=== PATIENT | male | born 1975 | race Caucasian/White ===

== ENCOUNTER 2022-06-22 05:45 | Emergency (ER) | payer OTHER, SELFPAY ==
--- NOTE | 2022-06-22 | ECG_ITS ---
Test Reason : CHEST PAIN Blood Pressure : / mmHG Vent. Rate : 078 BPM Atrial Rate : 078 BPM P-R Int : 140 ms QRS Dur : 098 ms QT Int : 392 ms P-R-T Axes : 049 009 100 degrees QTc Int : 446 ms Normal sinus rhythm Nonspecific T wave abnormality Abnormal ECG When compared with ECG of 16-JUL-2006 22:02, Nonspecific ST and T wave abnormality now present Referred By: Generic ED Physician Electronically Signed By:JHOANA WALLACE
--- NOTE | ~2022-06-22 | XR_ITS ---
EXAMINATION: XR SHOULDER, LEFT CLINICAL INFORMATION: Trauma. Left shoulder pain. COMPARISON: None available. TECHNIQUE: 3 views of the left shoulder. As per technologist notes best possible images obtained at this time given the patient's ability to cooperate for proper positioning.. Evaluation on transscapular Y-view is significantly limited. FINDINGS: Acromioclavicular and glenohumeral joint alignments are maintained. Normal osseous mineralization. No evidence of fracture on the submitted images. No dystrophic soft tissue calcifications are noted. Visualized thorax is unremarkable. XR/XR shoulder LT min 2V IMPRESSION: Limited evaluation. On the submitted images no definite evidence of acute fracture or dislocation in the left shoulder.
[2022-06-22 05:58] VITALS: BP 154/117; PULSE 77; RESP 15; TEMP 36.5; O2SAT 98; BMI 44.3
[2022-06-22 06:12] VITALS: BP 147/81; PULSE 68
[2022-06-22 06:25] VITALS: BP 147/81
[2022-06-22 06:29] LABS: MANUAL DIFF FLAG NO
--- NOTE | 2022-06-22 06:30 | ED_ITS ---
HPI - General Adult General Chief complaint: ETOH/Substance Use Stated complaint: cp Time Seen by Provider: 06/22/22 06:28 Source: patient and EMS Mode of arrival: EMS Limitations: no limitations History of Present Illness HPI narrative: Patient is a 46 year old assigned male at with a history of chronic left s houlder pain presenting to the emergency department today with alcohol intoxication and persistent left shoulder pain. Patient states that he has been binge drinking since his mother day on 06/20/2022. Patient states that he got very drunk, began having left sided chest pain, and came into the hospital. Patient states that he has had multiple issues with the left shoulder including a previous surgery. Patient denies any dizziness, lightheadedness, abdominal pain, nausea, vomiting, fever, chills, blurry vision, double vision, loss of vision, chest pain, difficulty breathing, shortness of breath, back pain, night sweats, pain with urination, increased urinary frequency, increased urinary urgency, blood in his urine or stool, syncope or a near syncopal episode, bowel incontinence, bladder incontinence, bowel retention, bladder retention, or any other complaints at this time. Onset (ago): hour(s) Severity: mild Relieving factors: none Exacerbating factors: none Associated symptoms: denies other symptoms Treatments prior to arrival: none Related Data Allergies Allergy/AdvReac Type Severity Reaction Status Date / Time Penicillins [PENICILLINS] Allergy Unknown patient Verified 06/22/22 06:05 was young when having reaction, does not know reacti Review of Systems Constitutional: Constitutional: Reports no additional constitutional complaints, Denies chills, Denies fever(s) and Denies night sweats Eyes: Eyes: Reports no additional eye complaints, Denies blurry vision, Denies change in vision, Denies diplopia, Denies eye discharge, Denies loss of vision and Denies eye pain ENT: Denies dizziness Cardiovascular: Cardiovascular: Reports no additional cardiovascular complaints, Reports chest pain (resolved), Denies lightheadedness, Denies Loss of Consciousness and Denies dyspnea Respiratory: Respiratory: Reports no additional respiratory complaints and Denies dyspnea Gastrointestinal: Gastrointestinal: Reports no additional gastrointestinal complaints, Denies abdominal pain, Denies melena, Denies hematochezia, Denies change in bowel habits and Denies change in stool character Genitourinary: Genitourinary: Reports no additional male genitourinary complaints, Denies hematuria, Denies oliguria, Denies difficulty urinating, Denies dysuria, Denies urinary frequency, Denies urinary hesitancy, Denies urinary incontinence and Denies urinary urgency Musculoskeletal: Musculoskeletal: Reports no additional musculoskeletal complaints, Denies numbness and Denies tingling Comments: left shoulder pain - chronic Neurologic: Denies dizziness, Denies loss of vision, Denies numbness and Denies tingling Psychiatric: Psychiatric: Reports no additional psychiatric complaints Endocrine: Endocrine: Reports no additional endocrine complaints Hematologic/Lymphatic: Hematologic/Lymphatic: Reports no additional hematologic/lymphatic complaints Allergic/Immunologic: Allergic/Immunologic: Reports no additional allergic/immunologic complaints [facility] Past Medical History Attestation statement: The following information was validated with the patient. Source: old records reviewed and nursing notes reviewed Social History Social History Alcohol intake: current Smoked in Last 30 Days: No Use of substances other than those prescribed or required for medical reasons: No Advance Directives: No Advance Directives Information Provided: Yes Physical Exam ED Vital Signs: Vital Signs - 24 hr 06/22/22 05:58 06/22/22 06:25 06/22/22 06:12 Temperature 97.7 F Pulse Rate 77 68 Respiratory Rate 15 Blood Pressure 154/117 H 147/81 H 147/81 H Pulse Oximetry 98 Oxygen Delivery Method Room Air 06/22/22 08:18 06/22/22 10:06 Temperature Pulse Rate 75 81 Respiratory Rate 12 18 Blood Pressure 111/67 132/63 Pulse Oximetry 97 95 Oxygen Delivery Method Room Air Room Air BMI result Body Mass Index 44.3 Const General: cooperative, no acute distress, alert and awake Nutritional Appearance: well nourished Orientation/consciousness: patient oriented x3 Limitations: no limitations HENMT Head: Yes normal to inspection and Yes atraumatic Ears: hearing grossly normal bilaterally and external ears normal General nose exam: Normal external nose present, no nasal discharge noted and no epistaxis Face and sinus: Yes normal facial exam, No abrasion and No laceration Mouth: Normal oral and palatal mucosa present, no drooling and no muffled voice Eyes General: appearance normal, both eyes and all related structures Periorbital: periorbital findings normal Eyelids: Yes eyelids normal Conjunctivae: conjunctivae normal Pupils: Equal, round and reactive pupils present EOM: EOMs intact bilaterally Neck Neck: Yes normal visual inspection, Yes full ROM and Yes no lymphadenopathy Chest Chest palpation & inspection: normal inspection of the chest Resp Effort & Inspection: normal respiratory effort and able to speak in complete sentences Auscultation: clear to auscultation bilaterally Cardio Rate: regular rate Rhythm: regular rhythm GI Inspection: Yes normal to inspection Neuro General: patient oriented x3 and moves all extremities Cranial nerves: Yes Equal, round and reactive pupils present Cognition (Neuro): normal cognition Motor exam (neuro): 5/5 motor strength present throughout Sensory Exam: Normal double simultaneous stimulation for sensation Coordination: [id number] test normal Extrem General: Yes normal to inspection, Yes full ROM and Yes capillary refill normal Psych Appearance: grossly normal Mental Status: mental status grossly normal Affect: normal affect Attitude: cooperative Thought process: Normal thought process present Thought content: Normal thought content present Insight: Good insight present (Psych) Medications Administered Discontinued Medications Generic Name Dose Route Start Last Admin Trade Name Freq PRN Reason Stop Dose Admin Cyclobenzaprine HCl 5 mg 06/22/22 10:11 06/22/22 10:25 Cyclobenzaprine Hcl 5 Mg Tablet PO 06/22/22 10:12 5 mg ONCE ONE Administration Ketorolac Tromethamine 15 mg 06/22/22 10:11 06/22/22 10:25 Ketorolac Tromethamine 15 Mg/Ml Vial IM 06/22/22 10:12 15 mg ONCE ONE Administration Medical Decision Making Medical Decision Making [facility] Narrative: Patient is a 46 year old assigned male at with a history of chronic left shoulder pain presenting to the emergency department today with left shoulder pain and alcohol intoxication. Patient's physical exam was unremarkable. Patient's blood work was unremarkable. Patient's EKG was unremarkable. Patient's left shoulder x-ray showed no acute process. I explained my physical exam findings as well as all test results to the patient. I answered all questions asked by the patient. I requested that the recovery team meet with the patient however, the patient adamantly refused to speak to anyone from that team and was adamant that he did not want or need any help. I stressed the importance of the patient taking his medication as prescribed. I stressed the importance of the patient following up with his primary care and an orthopedic provider. I stressed the importance of the patient returning to the emergency department immediately if his symptoms were to worsen or if he were to develop any dizziness, shortness of breath, difficulty breathing, chest pain, blurry vision, loss of vision, nausea, vomiting, abdominal pain, fever, chills, back pain, or any other complaints. Patient verbalized agreement and understanding with this treatment plan and discharge. Differential Diagnosis Differential Diagnoses: The differential diagnosis associated with the presentation includes alcohol intoxication, left shoulder pain Lab Data MDM Lab Attestation statement: I reviewed the patient's lab results. 06/22/22 06:24 06/22/22 06:24 Labs: Lab Results 06/22/22 06/22/22 06/22/22 Range/Units 06:24 06:24 06:24 WBC 8.3 (4.8-10.8) X10*3/uL RBC 3.81 L (4.60-5.80) X10*6/uL Hgb 12.2 L (14.0-18.0) g/dl Hct 35.2 L (42.0-52.0) % MCV 92.4 (80.0-98.0) fL MCH 32.0 (27.0-33.0) pg MCHC 34.7 (31.0-36.0) g/dl RDW 11.8 (11.0-16.0) % Plt Count 256 (160-400) X10*3/uL MPV 10.4 (9.4-12.4) fL Immature Gran % (Auto) 0.5 H (0.0-0.4) % Neut % (Auto) 41.0 L (45-73) % Lymph % (Auto) 45.8 H (20-40) % [place] % (Auto) 8.6 (2-11) % Eos % (Auto) 3.7 (0-4) % Baso % (Auto) 0.4 (0-2) % Lymph # (Auto) 3.8 (1.2-4.9) X10*3/uL [place] # (Auto) 0.7 (0.1-1.2) X10*3/uL Eos # (Auto) 0.3 (0.0-0.4) X10*3/uL Baso # (Auto) 0.0 (0.0-0.2) X10*3/uL Abs Immat Gran (auto) 0.04 H (0.00-0.03) X10*3/uL Absolute Neuts (auto) 3.4 (2.0-8.3) x10*3/uL Absolute Nucleated RBC 0.000 (0.0-0.012) X10*3/uL Nucleated RBC % (auto) 0.0 (0.0-0.2) /100WBC Sodium 134 L (135-145) mmol/L Potassium 3.5 (3.3-5.1) mmol/L Chloride 100 (96-108) mmol/L Carbon Dioxide 24 (22-29) mmol/L Anion Gap 14 (12-20) BUN 6 L (9-16) mg/dL Creatinine 0.79 (0.5-1.4) mg/dL Estim Creat Clear Calc 158.3 Estimated GFR > 60 Random Glucose 126 H (60-115) mg/dL Calcium 8.6 (8.4-10.2) mg/dL Total Bilirubin 0.4 (0.0-1.0) mg/dL AST 27 (5-37) U/L ALT 32 (0-40) U/L Alkaline Phosphatase 84 (39-117) U/L Troponin I High Sens (<3.5-35.0) ng/L Total Protein 7.2 (6.5-8.0) g/dL Albumin 4.2 (3.5-5.0) g/dL Ethyl Alcohol 292 mg/dL 06/22/22 06/22/22 Range/Units 06:24 08:24 WBC (4.8-10.8) X10*3/uL RBC (4.60-5.80) X10*6/uL Hgb (14.0-18.0) g/dl Hct (42.0-52.0) % MCV (80.0-98.0) fL MCH (27.0-33.0) pg MCHC (31.0-36.0) g/dl RDW (11.0-16.0) % Plt Count (160-400) X10*3/uL MPV (9.4-12.4) fL Immature Gran % (Auto) (0.0-0.4) % Neut % (Auto) (45-73) % Lymph % (Auto) (20-40) % [place] % (Auto) (2-11) % Eos % (Auto) (0-4) % Baso % (Auto) (0-2) % Lymph # (Auto) (1.2-4.9) X10*3/uL [place] # (Auto) (0.1-1.2) X10*3/uL Eos # (Auto) (0.0-0.4) X10*3/uL Baso # (Auto) (0.0-0.2) X10*3/uL Abs Immat Gran (auto) (0.00-0.03) X10*3/uL Absolute Neuts (auto) (2.0-8.3) x10*3/uL Absolute Nucleated RBC (0.0-0.012) X10*3/uL Nucleated RBC % (auto) (0.0-0.2) /100WBC Sodium (135-145) mmol/L Potassium (3.3-5.1) mmol/L Chloride (96-108) mmol/L Carbon Dioxide (22-29) mmol/L Anion Gap (12-20) BUN (9-16) mg/dL Creatinine (0.5-1.4) mg/dL Estim Creat Clear Calc Estimated GFR Random Glucose (60-115) mg/dL Calcium (8.4-10.2) mg/dL Total Bilirubin (0.0-1.0) mg/dL AST (5-37) U/L ALT (0-40) U/L Alkaline Phosphatase (39-117) U/L Troponin I High Sens 7.8 7.9 (<3.5-35.0) ng/L Total Protein (6.5-8.0) g/dL Albumin (3.5-5.0) g/dL Ethyl Alcohol mg/dL Independent Interpretation I performed an independent interpretation of an: EKG and Plain X-Ray Interpretation: Vent. Rate: 078 BPM ? ? Atrial Rate: 078 BPM P-R Int: 140 ms? QRS Dur: 098 ms QT Int: 392 ms ? ? ? P-R-T Axes: 049 009 100 degrees QTc Int: 446 ms ? Normal sinus rhythm Nonspecific T wave abnormality Abnormal ECG When compared with ECG of 16-JUL-2006 22:02, No significant change was found DD/ [id number] My interpretation is in agreement with the radiologist's impression of this imaging study. EXAMINATION: XR SHOULDER, LEFT CLINICAL INFORMATION: Trauma. Left shoulder pain.? COMPARISON: None available.? TECHNIQUE: 3 views of the left shoulder. As per technologist notes best possible images obtained at this time given the patient's ability to cooperate for proper positioning.. Evaluation on transscapular Y-view is significantly limited. FINDINGS: Acromioclavicular and glenohumeral joint alignments are maintained. Normal osseous mineralization. No evidence of fracture on the submitted images. No dystrophic soft tissue calcifications are noted. Visualized thorax is unremarkable. XR/XR shoulder LT min 2V IMPRESSION: Limited evaluation. On the submitted images no definite evidence of acute fracture or dislocation in the left shoulder. Dictated By: Arianna Lee MD Signed By: Electronically signed by Arianna Lee MD 06/22/22 0726 Independent Historian Clinical information obtained from an independent historian. History obtained from or confirmed by: EMS Discharge Plan Discharge Clinical Impression: Alcoholic intoxication, Acute shoulder pain Patient Disposition: Home, Self-Care Instructions: Shoulder Pain (ED) Additional Instructions: Follow up with your primary care provider and an orthopedic provider. Return to the emergency department immediately if your symptoms worsen or if you develop any dizziness, shortness of breath, difficulty breathing, chest pain, blurry vision, loss of vision, nausea, vomiting, abdominal pain, fever, chills, back pain, or any other complaints. Referrals: [facility] [place] [facility] [place]Provider Group] (Call to establish and follow up with a primary care provider. If you already have a primary care provider, please follow up with them.) [facility] [place] [facility], [place] [Provider Group] (Call to establish and follow up with a primary care provider. If you already have a primary care provider, please follow up with them.) [facility] [place] [facility],Felisa [Provider Group] (Call to establish and follow up with a primary care provider. If you already have a primary care provider, please follow up with them.) [facility] [place] [facility] [Provider Group] (Call to establish and follow up with an orthopedic provider.) Stand Alone Forms: Work/School Release Interventions: ED Discharge Assessment Last Done: 06/22/22 11:01 Discharge Date/Time: 06/22/22 11:01 Print Language: [place]guill[place]
[2022-06-22 06:31] LABS: Basophils Percent Auto 0.4 % (0-2); Eosinophils Absolute Auto 0.3 X10*3/uL (0.0-0.4); Eosinophils Percent Auto 3.7 % (0-4); Hematocrit 35.2 % (42.0-52.0); Hemoglobin 12.2 g/dl (14.0-18.0); Imm Gran Abs Auto 0.04 X10*3/uL (0.00-0.03); Imm Gran Pct Auto 0.5 % (0.0-0.4); Lymphocytes Absolute Auto 3.8 X10*3/uL (1.2-4.9); Lymphocytes Percent Auto 45.8 % (20-40); Mean Corpuscular HGB Conc 34.7 g/dl (31.0-36.0); Mean Corpuscular Volume 92.4 fL (80.0-98.0); Mean Platelet Volume 10.4 fL (9.4-12.4); Monocytes Absolute Auto 0.7 X10*3/uL (0.1-1.2); Monocytes Percent Auto 8.6 % (2-11); Neutrophils Absolute Auto 3.4 x10*3/uL (2.0-8.3); Platelet Count 256 X10*3/uL (160-400); Red Blood Count 3.81 X10*6/uL (4.60-5.80); Red Cell Distribution Width 11.8 % (11.0-16.0); White Blood Count 8.3 X10*3/uL (4.8-10.8)
[2022-06-22 06:51] LABS: Troponin-I High Sensitivity 7.8 ng/L (<3.5-35.0)
[2022-06-22 06:53] LABS: Alanine Aminotransferase 32 U/L (0-40); Albumin Level 4.2 g/dL (3.5-5.0); Alkaline Phosphatase 84 U/L (39-117); Anion Gap 14 (12-20); Aspartate Amino Transferase 27 U/L (5-37); Bilirubin Total 0.4 mg/dL (0.0-1.0); Blood Urea Nitrogen 6 mg/dL (9-16); Calcium 8.6 mg/dL (8.4-10.2); Carbon Dioxide 24 mmol/L (22-29); Chloride 100 mmol/L (96-108); Creatinine Clr Calc Pharmacy 158.3; Estimated Glomerular Filt Rate > 60; Ethanol 292 mg/dL; Glucose Random 126 mg/dL (60-115); Potassium 3.5 mmol/L (3.3-5.1); Sodium 134 mmol/L (135-145); Total Protein 7.2 g/dL (6.5-8.0)
[2022-06-22 08:18] VITALS: BP 111/67; PULSE 75; RESP 12; O2SAT 97
[2022-06-22 08:49] LABS: Troponin-I High Sensitivity 7.9 ng/L (<3.5-35.0)
[2022-06-22 10:06] VITALS: BP 132/63; PULSE 81; RESP 18; O2SAT 95
--- NOTE | 2022-06-22 10:11 | PC.NURSE ---
pt is resting on the stretcher, skin pwd, respirations even and unlabored, pt reports left sided shoulder pain 05/23, pt states that he is not interested in getting help for detox placement or help with depression states that his mother passed about a month ago and started to drink because of that, just wants his shoulder fixed, vs stable
[2022-06-22] MEDS: Cyclobenzaprine HCl 5 MG TABLET PO (10:25)
[2022-06-22] MEDS: Ketorolac Tromethamine 15 MG/ML VIAL IM (10:25)
--- NOTE | 2022-06-22 10:34 | PC.NURSE ---
recovery analyst at bedside, pt refusing services
--- NOTE | 2022-06-22 11:37 | MHC.RECOVSUP ---
Met with pt in ED10 for potential ATS bed search. Pt informs he is not interested in ATS or any recovery assistance. Provided pt with recovery information and he had no further questions or concerns at this time.
== END 2022-06-22 11:01 | disposition home or self-care (01) ==
PROVIDERS: Emergency Medicine; Physician Assistant Medical; Emergency Provider Emergency Medicine Emergency Medical Services
DX: F10.220 Alcohol dependence with intoxication, uncomplicated (principal); Y90.8 Blood alcohol level of 240 mg/100 ml or more; M25.512 Pain in left shoulder
CPT/HCPCS: 36415; 73030; 80053; 80307; 84484; 85025; 93005; 96372; 99285; J1885

== ENCOUNTER 2024-06-30 03:00 | Emergency (ER) | payer BC, SELFPAY ==
--- NOTE | 2024-06-30 | ECG_ITS ---
Test Reason : CHEST PAIN Blood Pressure : */* mmHG Vent. Rate : 80 BPM Atrial Rate : 80 BPM P-R Int : 142 ms QRS Dur : 104 ms QT Int : 392 ms P-R-T Axes : 49 6 79 degrees QTcB Int : 452 ms Normal sinus rhythm Nonspecific T wave abnormality Abnormal ECG When compared with ECG of 22-Jun-2022 05:57, No significant change was found Referred By: Generic ED Physician Electronically Signed By: DEBBIE PEGUERO MD
--- NOTE | ~2024-06-30 | XR_ITS ---
CLINICAL HISTORY: sob Chest one view Comparison: None Findings: Clear lungs. Incidental azygous lobe and fissure. Normal heart size and mediastinal contour. Trachea is midline. Bones intact. Impression: Normal one-view chest. This document has been electronically signed by: Yonis Heard MD on 06/30/2024 05:58:24
[2024-06-30 03:03] VITALS: BP 158/77; PULSE 85; RESP 14; TEMP 36.5; O2SAT 96; BMI 47.0
[2024-06-30 03:25] LABS: Hematocrit 36.7 % (42.0-52.0); Mean Corpuscular HGB Conc 35.4 g/dl (31.0-36.0); Mean Corpuscular Hemoglobin 31.3 pg (27.0-33.0); Mean Corpuscular Volume 88.4 fL (80.0-98.0); Mean Platelet Volume 9.9 fL (9.4-12.4); Platelet Count 259 X10*3/uL (160-400); Red Blood Count 4.15 X10*6/uL (4.60-5.80); Red Cell Distribution Width 12.9 % (11.0-16.0); White Blood Count 7.9 X10*3/uL (4.8-10.8)
[2024-06-30 03:30] VITALS: BP 161/83; PULSE 84; RESP 14; TEMP 36.8; O2SAT 96
[2024-06-30 03:52] LABS: Troponin-I High Sensitivity 5.4 ng/L (<3.5-35.0)
[2024-06-30 03:56] LABS: Alanine Aminotransferase 76 U/L (0-40); Albumin Level 4.2 g/dL (3.5-5.0); Alkaline Phosphatase 107 U/L (39-117); Anion Gap 16 (12-20); Aspartate Amino Transferase 72 U/L (5-37); Bilirubin Total 0.4 mg/dL (0.0-1.0); Blood Urea Nitrogen 7 mg/dL (9-16); Calcium 8.8 mg/dL (8.4-10.2); Carbon Dioxide 23 mmol/L (22-29); Chloride 100 mmol/L (96-108); Creatinine Clr Calc Pharmacy 171.6; Estimated Glomerular Filt Rate > 60; Glucose Random 209 mg/dL (60-115); Lipase 27 U/L (8-78); Potassium 3.4 mmol/L (3.3-5.1); Sodium 136 mmol/L (135-145); Total Protein 7.7 g/dL (6.5-8.0)
[2024-06-30 03:57] LABS: B Type Natriuretic Peptide 22 pg/mL (<100)
[2024-06-30 04:17] VITALS: BP 166/77; PULSE 80; RESP 15; TEMP 36.7; O2SAT 96
--- NOTE | 2024-06-30 04:53 | ED_ITS ---
HPI - SOB/Dyspnea General Chief Complaint: Dyspnea Stated Complaint: Dyspnea Time Seen by Provider: 06/30/24 04:42 Source: patient Mode of arrival: ambulatory Limitations: no limitations History of Present Illness ED Provider: Dr. Tiera Finnegan HPI Narrative: patient comes to the emergency room complaining of shortness of breath. Patient states it has been going on for several days. Denies chest pain. Patient states he has history of asthma. Also, patient came in complaining of worsening lower extremity swelling. Patient states that the lower extremity edema has been present for over 2 years now. Also, patient reports that he feels that resolved and his keeps a heart beat Related Data Previous Rx's ?Medication ?Instructions ?Recorded furosemide 20 mg tablet (Lasix) 20 mg PO DAILY #7 tabs 06/30/24 Allergies Allergy/AdvReac Type Severity Reaction Status Date / Time Penicillins [PENICILLINS] Allergy Unknown patient Verified 06/30/24 03:06 was young when having reaction, does not know reacti [facility] Social History Social History Alcohol intake: current Alcohol intake frequency: a few times a week Alcohol type: beer Smoked in Last 30 Days: No Use of substances other than those prescribed or required for medical reasons: No Advance Directives: No Advance Directives Information Provided: Yes Physical Exam 2 Vital Signs: Vital Signs: Last Vital Signs Temp 97.9 F 06/30/24 06:13 Pulse 85 06/30/24 06:13 Resp 15 06/30/24 06:13 BP 130/58 L 06/30/24 06:13 Pulse Ox 95 06/30/24 06:13 O2 Del Method Room Air 06/30/24 06:13 BMI result Body Mass Index 47.0 Medical Decision Making Medical Decision Making [facility] Narrative: my interpretation of labs: No significant abnormality in patient's hematology or chemistry, normal LFTs, normal troponin, normal BNP patient was ambulated around the emergency room, patient's oxygen saturation in the low 90s without oxygen desaturation. my interpretation of EKG: Normal sinus rhythm, heart rate 80, no ST segment depression or elevation, no T-wave inversion, QTC 452 patient's serology negative for influenza, COVID and RSV. Chest x-ray unremarkable. Patient will be started on Lasix. Patient instructed to follow-up with his primary care physician. Differential Diagnosis Differential Diagnoses: The differential diagnosis associated with the presentation includes ( CHF, venous insufficiency, viral illness) Admission/Observation Consideration of admission/observation: Escalation of care including admission/observation considered ( given patient's mild set of complaints and presentation, observation was considered) Lab Data MDM Lab Attestation statement: I reviewed the patient's lab results. 06/30/24 03:18 06/30/24 03:18 Labs: Lab Results 06/30/24 06/30/24 Range/Units 03:18 04:58 WBC 7.9 (4.8-10.8) X10*3/uL RBC 4.15 L (4.60-5.80) X10*6/uL Hgb 13.0 L (14.0-18.0) g/dl Hct 36.7 L (42.0-52.0) % MCV 88.4 (80.0-98.0) fL MCH 31.3 (27.0-33.0) pg MCHC 35.4 (31.0-36.0) g/dl RDW 12.9 (11.0-16.0) % Plt Count 259 (160-400) X10*3/uL MPV 9.9 (9.4-12.4) fL Absolute Nucleated RBC 0.000 (0.0-0.012) X10*3/uL Nucleated RBC % (auto) 0.0 (0.0-0.2) /100WBC Sodium 136 (135-145) mmol/L Potassium 3.4 (3.3-5.1) mmol/L Chloride 100 (96-108) mmol/L Carbon Dioxide 23 (22-29) mmol/L Anion Gap 16 (12-20) BUN 7 L (9-16) mg/dL Creatinine 0.76 (0.5-1.4) mg/dL Estim Creat Clear Calc 171.6 Estimated GFR > 60 Random Glucose 209 H (60-115) mg/dL Calcium 8.8 (8.4-10.2) mg/dL Total Bilirubin 0.4 (0.0-1.0) mg/dL AST 72 H (5-37) U/L ALT 76 H (0-40) U/L Alkaline Phosphatase 107 (39-117) U/L Troponin I High Sens 5.4 (<3.5-35.0) ng/L B-Natriuretic Peptide 22 (<100) pg/mL Total Protein 7.7 (6.5-8.0) g/dL Albumin 4.2 (3.5-5.0) g/dL Lipase 27 (8-78) U/L Influenza Type A (PCR) NEGATIVE (Negative) Influenza Type B (PCR) NEGATIVE (Negative) RSV RNA Qual (PCR) NEGATIVE (Negative) SARS-CoV-2 RNA (RT-PCR) NEGATIVE (Negative) Critical Care Time Critical Care Time Critical Care Time: Yes Total Critical Care Time: 35 Attestation: I have personally provided critical care time. Time includes review of lab data, radiology results, discussion with consultants, and monitoring for potential decompensation. Intervention performed as documented. Discharge Plan Discharge Clinical Impression: Dyspnea, Bilateral lower extremity edema Patient Disposition: Home, Self-Care Instructions: Leg Edema (ED), Dyspnea (ED) Additional Instructions: Please follow-up with your primary care physician tomorrow. If you have any worsening or new symptoms, please return to the emergency room or call 911 Prescriptions: New furosemide [Lasix] 20 mg tablet 20 mg PO DAILY Qty: 7 0RF Stand Alone Forms: Work/School Release Print Language: [place]
[2024-06-30 05:43] LABS: Influenza A PCR NEGATIVE (Negative); Influenza B PCR NEGATIVE (Negative); Resp Syncy Virus RNA Qual PCR NEGATIVE (Negative); SARS COV2 PCR INHOUSE NEGATIVE (Negative)
[2024-06-30 06:13] VITALS: BP 130/58; PULSE 85; RESP 15; TEMP 36.6; O2SAT 95
[2024-06-30 07:30] VITALS: BP 130/58; PULSE 85; RESP 15; TEMP 36.6; O2SAT 95
== END 2024-06-30 07:30 | disposition home or self-care (01) ==
PROVIDERS: Emergency Provider Emergency Medicine; PCP Pediatrics
DX: R06.00 Dyspnea, unspecified (principal); R60.0 Localized edema; Z03.818 Encounter for observation for suspected exposure to other biological agents ruled out; R06.02 Shortness of breath; J45.909 Unspecified asthma, uncomplicated
CPT/HCPCS: 0241U; 36415; 71045; 80053; 83690; 83880; 84484; 85027; 93005; 99283; 99284

== ENCOUNTER → 2024-06-30 03:09 | Outpatient (BNV) | payer BC, SELFPAY | PROVIDERS: Emergency Provider Emergency Medicine; PCP Pediatrics; Visit Provider Internal Medicine Cardiovascular Disease | DX: R94.31 Abnormal electrocardiogram [ECG] [EKG] (principal); R07.9 Chest pain, unspecified | CPT/HCPCS: 93010 ==

== ENCOUNTER → 2024-06-30 04:43 | Outpatient (BNV) | payer BC, SELFPAY | PROVIDERS: Emergency Provider Emergency Medicine; PCP Pediatrics; Visit Provider Radiology Diagnostic Radiology | DX: R06.02 Shortness of breath (principal) | CPT/HCPCS: 71045 ==